=== PATIENT | female | born 1985 | race Caucasian/White ===

== ENCOUNTER 2016-11-19 11:44 | Emergency (ER) | payer OTHER ==
[2016-11-19 11:49] VITALS: RESP 18
--- NOTE | 2016-11-19 12:07 | EDPHY ---
H & P Stated Complaint: R middle finger laceration HPI/ROS: CHIEF COMPLAINT: Right middle finger laceration HISTORY OF PRESENT ILLNESS: Patient was drying off the blades of her fruit process of this morning when she accidentally cut her right middle finger. This is on the volar aspect. Distal phalanx. Bleeding and pain. No difficulty flexing or extending the finger. No numbness or tingling. This was a clean- catch item. Her tetanus is up-to-date to her knowledge. No other associated complaints or modifying factors. TIME OF INJURY: 11:20 a.m. TETANUS STATUS: Current REVIEW OF SYSTEMS: Ten systems reviewed and are negative unless otherwise noted in the HPI EXAMINATION General Appearance: Alert, no distress Head: normocephalic, atraumatic Cardiovascular: Pulses normal throughout. Symmetric radial pulses are 2+. Brisk cap refill Neurological: A&O, sensory symmetric, strength symmetric Skin: Warm and dry, no rash 1 cm laceration on the volar aspect of the right middle finger distal phalanx. Venous bleeding noted. No pulsatile blood flow. No surrounding skin abnormalities. Extremities: Mild tenderness over the area laceration right middle finger. Range of motion is intact including the superficial in profundus structures. Neurovascular intact distal to the laceration. Psychiatric: Mood and affect normal MDM: 12:04 p.m. Small laceration to the right middle finger distal phalanx. No involvement of the tendinous structures. Neurovascular intact. Digital block administered. Proceed with irrigation closure. 12:30 p.m. Laceration that has been closed and repaired without complication. Neurovascular intact post procedure. Discharged home with wound care instructions. Follow up here for suture removal as instructed. Return sooner for signs of infection as discussed. PROCEDURE: Digital Block Indication: Finger laceration Consent: Verbal Location: Right middle finger Anesthesia: Lidocaine 1% plain, 0.25% Marcaine plain, 5mL Description: After the skin was prepped, 5 mm of the above were infused at the base of the right middle finger. There was good anesthesia. Tolerated well. No complication. Brisk cap refill postprocedure. Complications: None PROCEDURE: Laceration repair Consent: Verbal Location: Right middle finger, distal phalanx, volar Length of repair: 1 cm curvilinear Complexity: Simple Layer involvement: single Anesthesia: digital block as above Irrigation: Extensive Debridement: None Procedure description: Following good anesthesia, the wound was copiously irrigated. Wound bed was explored and there is no foreign body noted. Wound borders were approximated well with good hemostasis. Tolerated well without complication. Suture/Staple material: 5-0 Ethilon x2 Wound care: Routine as discussed Suture/Staple removal: 7-10 Days SUTURE STAPLE REMOVAL: 7-10 days ED Precautions: Worsening pain. Erythema, edema, cyanosis, pallor, paresthesia or anesthesia. SUPERVISION: This patient was independently evaluated without direct examination by the attending physician. Case was discussed with attending physician. Source: Patient, Family Exam Limitations: No limitations - Personal History LMP (Females 10-55): 1-7 Days Ago Current Tetanus Diphtheria and Acellular Pertussis (TDAP): Yes - Medical/Surgical History Hx Asthma: No Hx Chronic Respiratory Disease: No Hx Diabetes: No Hx Cardiac Disease: No Hx Renal Disease: No Hx Cirrhosis: No Hx Alcoholism: No Hx HIV/AIDS: No Hx Splenectomy or Spleen Trauma: No Other PMH: denies - Social History Smoking Status: Never smoked Constitutional: Initial Vital Signs Temperature (C) 98.4 F 11/19/16 11:47 Heart Rate 74 11/19/16 11:47 Respiratory Rate 18 11/19/16 11:47 Blood Pressure 130/74 H 11/19/16 11:47 O2 Sat (%) 95 11/19/16 11:47 O2 Delivery Mode Room Air Allergies/Adverse Reactions: No Known Allergies Allergy (Unverified 11/19/16 11:48) Home Medications: Medication Instructions Recorded NK [No Known Home Meds] 11/19/16 Departure - Departure Disposition: Home, Routine, Self-Care Clinical Impression: Laceration of middle finger of right hand without complication Qualifiers: Encounter type: initial encounter Qualified Code(s): S61.212A - Laceration without foreign body of right middle finger without damage to nail, initial encounter Condition: Good Instructions: Care For Your Stitches (ED), Laceration (ED) Additional Instructions: Wound Care Follow-Up: Removal of sutures in [ 7-10 ] days. Suture removal is complimentary in uncomplicated cases. Infection or abnormal findings would require reevaluation by the MD. In that case, you may be billed. Daily wound care as discussed. Follow up here or with primary care physician in 7-10 days for suture removal. Return sooner for signs of infection as discussed Referrals: NONE *PRIMARY CARE P,. [Primary Care Provider] - As per Instructions Emily Aguero MD [Medical Doctor] - As per Instructions Physician,Emergency DeptMD [Medical Doctor] - As per Instructions
[2016-11-19 12:36] VITALS: BP 125/67; PULSE 72; TEMP 98.2; O2SAT 96
== END 2016-11-19 12:44 | disposition home or self-care (01) ==
PROC: 0HQFXZZ Repair Right Hand Skin, External Approach (ICD-10-PCS; principal; 2016-11-19)
DX: S61.212A Laceration without foreign body of right middle finger without damage to nail, initial encounter (principal); W26.8XXA Contact with other sharp object(s), not elsewhere classified, initial encounter

== ENCOUNTER → 2017-05-24 | Outpatient (CLI) | payer OTHER | LOC: FIMAGING 11:36 | PROVIDERS: ATTEND Advanced Practice Midwife | DX: Z36.89 Encounter for other specified antenatal screening (principal); Z3A.20 20 weeks gestation of pregnancy ==

== ENCOUNTER 2017-09-20 06:31 | Observation (INO) | payer OTHER ==
[2017-09-20] MEDS ORDERED: TERBUTALINE SULFATE 1 MG/ML VIAL IV ONE (06:38)
[2017-09-20] MEDS ORDERED: OLIVE OIL 118 ML BTL MISC ONE (06:38)
--- NOTE | 2017-09-20 08:01 | SOAPPROG ---
SOAP Progress Note Assessment/Plan: Assessment: 32 y/o at 37 weeks presents for external version Fetus found to be vertex via ultrasound on admission Category 1 EFM - reactive NST MEMO 10 Plan: Abd binder given FU at next scheduled appt at [facility] Reviewed labor precautions, [facility] 09/20/17 13:34 Subjective: Patient is a at 37 weeks EGA who presents today from the [facility] for external version. Her baby was found to be in a transverse position yesterday at her routine visit. She has had an uncomplicated . Baby has been active, denies contractions, LOF, VB or other concerns. Objective: VSS EFM category 1 tracing baseline + accels no decels noted [place]: quiet US: vertex fetus MEMO: 10 - Time Spent With Patient Time Spent With Patient: 30 min - Pending Discharge Pending Discharge Within 24 Hours: Yes Pending Discharge Date: 09/21/17 Pending Discharge Time: 11:00 Physical Exam - Physical Exam General Appearance: WD/WN, alert, no apparent distress EENT: PERRL/EOMI Neck: non-tender, supple Respiratory: lungs clear Cardiac/Chest: regular rate, rhythm Abdomen: non-tender, soft Pelvic Exam: deferred Skin: normal color, warm/dry Neuro/Psych: alert, normal mood/affect, oriented x 3 ICD10 Worksheet Patient Problems: Problems Problem Status Onset Non-stress test reactive Acute Supervision of normal Acute - ICD10 Problem Qualifiers (1) Supervision of normal (2) Non-stress test reactive
== END 2017-09-20 07:50 | disposition home or self-care (01) ==
LOC: FLD 06:31 → EDSTATUS 07:30
PROVIDERS: ADMIT Obstetrics & Gynecology; ATTEND Obstetrics & Gynecology
DX: Z03.79 Encounter for other suspected maternal and fetal conditions ruled out (principal); Z3A.37 37 weeks gestation of pregnancy
CPT/HCPCS: J3105

== ENCOUNTER → 2017-10-18 | Outpatient (CLI) | payer OTHER | LOC: FIMAGING 08:21 | PROVIDERS: ATTEND Advanced Practice Midwife | DX: O41.03X0 Oligohydramnios, third trimester, not applicable or unspecified (principal); Z3A.41 41 weeks gestation of pregnancy ==